=== PATIENT | female | born 1965 | race Two or more races ===

== ENCOUNTER 2017-06-01 08:06 | Emergency (ER) | payer MEDICAID ==
[~2017-06-01] VITALS: Ht 165.1 cm; Wt 81.6 kg
[2017-06-01 08:37] VITALS: BP 128/81
== END 2017-06-01 09:38 | disposition home or self-care (01) ==
LOC: ER 08:06
DX: R05 Cough (principal); R06.02 Shortness of breath; R42 Dizziness and giddiness; Z90.710 Acquired absence of both cervix and uterus
CPT/HCPCS: 71046